=== PATIENT | female | born 1985 | race Two or more races ===

== ENCOUNTER 2018-07-14 12:35 | Emergency (ER) | payer MEDICAID ==
[~2018-07-14] VITALS: Ht 165.1 cm; Wt 99.8 kg
[2018-07-14 12:49] VITALS: BP 151/87
[2018-07-14] MEDS ORDERED: ACETAMINOPHEN 500 MG TAB PO ONE (17:00)
[2018-07-14] MEDS ORDERED: KETOROLAC TROMETH 60MG/2ML VIAL IM ONE (17:00)
[2018-07-14] MEDS ORDERED: HYDROcodone-ACET 5/325MG TAB PO ONE (18:00)
== END 2018-07-14 18:06 | disposition home or self-care (01) ==
LOC: ER 12:35
DX: M54.2 Cervicalgia (principal); R51 Headache; Z76.0 Encounter for issue of repeat prescription; Z88.6 Allergy status to analgesic agent
CPT/HCPCS: 96372; 99283; J1885

== ENCOUNTER 2018-09-02 10:34 | Emergency (ER) | payer MEDICAID ==
[~2018-09-02] VITALS: Ht 165.1 cm; Wt 99.8 kg
[2018-09-02 10:51] VITALS: BP 172/82
[2018-09-02] MEDS: KETOROLAC TROMETH 60MG/2ML VIAL IM ONE (11:18)
[2018-09-02] MEDS: ONDANSETRON ODT 4 MG TAB PO ONE (11:18)
[2018-09-02] MEDS: ALBUTEROL SULF 2.5 MG/0.5ML(0.5%) NEB SOLN NEB ONE (11:25)
[2018-09-02] MEDS: IPRATROPIUM BROM 0.5 MG/2.5ML INH SOL NEB ONE (11:26)
== END 2018-09-02 12:03 | disposition home or self-care (01) ==
LOC: ER 10:34
DX: J45.901 Unspecified asthma with (acute) exacerbation (principal); G89.29 Other chronic pain; M54.2 Cervicalgia; K21.9 Gastro-esophageal reflux disease without esophagitis; F17.210 Nicotine dependence, cigarettes, uncomplicated; Z76.0 Encounter for issue of repeat prescription
CPT/HCPCS: 94640; 99283; J1885; J7611; J7644; Q0162

== ENCOUNTER 2018-09-03 23:10 | Emergency (ER) | payer MEDICAID ==
[~2018-09-03] VITALS: Ht 165.1 cm; Wt 99.8 kg
[2018-09-03 23:55] LABS: Basophils # (auto) 0.2 uL; Basophils % (auto) 1.9 % (0.0-2.0); Eosinophils # (auto) 0 uL; Hematocrit 44.3 % (36.0-46.0); Hemoglobin 14.9 g/dL (12.2-16.2); Lymphocytes # (auto) 1.3 uL; Lymphocytes % (auto) 12.2 % (10.0-50.0); Mean Corpuscular Hemoglobin 29.8 pg (28.0-32.0); Mean Corpuscular Hgb Conc. 33.6 g/dL (32.0-36.0); Mean Corpuscular Volume 88.6 fL (80.0-100.0); Monocytes # (auto) 0.5 uL; Monocytes % (auto) 4.3 % (0.0-12.0); Neutrophils # (auto) 8.8 uL; Neutrophils % (auto) 81.6 % (37.0-80.0); Platelet Count (auto) 251 10^3/uL (140-450); Red Cell Distribution Width 14.7 % (11.8-14.3); White Blood Cell 10.8 10^3/uL (4.4-10.8)
[2018-09-04 00:12] LABS: Albumin 4.5 g/dL (3.4-5.0); Calcium 10.1 mg/dL (8.5-10.1); Magnesium 2.4 mg/dL (1.6-2.6); Potassium 4.6 mmol/L (3.5-5.1)
[2018-09-04 00:15] LABS: BUN/Creatinine Ratio 22.5; Bilirubin, Total 0.3 mg/dL (0.2-1.0); Total Protein 8.8 g/dL (6.4-8.2)
[2018-09-04 00:37] LABS: Urine Bacteria NONE SEEN /hpf (None Seen); Urine Blood TRACE /uL (Negative); Urine Specific Gravity 1.019 (1.001-1.035); Urine WBC 2 /hpf (0 - 5)
[2018-09-04] MEDS ORDERED: IOHEXOL 350 MG/ML 100ML IJ ONE (02:07)
[2018-09-04] MEDS ORDERED: ONDANSETRON HCL 4 MG/2 ML VIAL ONE (04:06)
[2018-09-04] MEDS ORDERED: ONDANSETRON HCL 4 MG/2 ML VIAL IV ONE (04:15)
[2018-09-04 04:47] VITALS: BP 151/86
== END 2018-09-04 05:36 | disposition home or self-care (01) ==
LOC: ER 23:12
DX: N39.0 Urinary tract infection, site not specified (principal); J45.909 Unspecified asthma, uncomplicated; K21.9 Gastro-esophageal reflux disease without esophagitis; G43.909 Migraine, unspecified, not intractable, without status migrainosus; F17.210 Nicotine dependence, cigarettes, uncomplicated; Z88.6 Allergy status to analgesic agent
CPT/HCPCS: 36415; 74177; 80053; 81001; 81025; 83690; 83735; 85025; 96374; 99284; J2405; Q9967